=== PATIENT | female | born 1980 | race Caucasian/White ===

== ENCOUNTER 2020-09-17 19:47 | Emergency (ER) | payer OTHER ==
[~2020-09-17] VITALS: Ht 167.6 cm; Wt 89.8 kg
[2020-09-17] MEDS ORDERED: ALBUTEROL/IPRATROPIUM 3 ML NEB NEB ONE (20:30)
[2020-09-17] MEDS ORDERED: SODIUM CHLORIDE 0.9% 1000ML 1,000 ML IV SCH (20:30)
[2020-09-17] MEDS ORDERED: DEXAMETHASONE SOD PHOS 10 MG/1 ML VIAL IV ONE (20:30)
[2020-09-17] MEDS ORDERED: DEXAMETHASONE SOD PHOS INJ 4 MG/ML VIAL ONE (20:45)
[2020-09-17] MEDS ORDERED: ACETAMINOPHEN 325 MG TAB PO ONE (20:45)
[2020-09-17] MEDS ORDERED: ALBUTEROL/IPRATROPIUM 3 ML NEB ONE (20:45)
[2020-09-17] MEDS ORDERED: ACETAMINOPHEN 325 MG TAB ONE (20:47)
[2020-09-17] MEDS ORDERED: POTASSIUM CHLORIDE 20 MEQ TAB CR PO STA (21:48)
[2020-09-17] MEDS ORDERED: POTASSIUM CHLORIDE 20 MEQ TAB CR PO ONE (22:58)
[2020-09-18] MEDS ORDERED: AZITHROMYCIN250 MG PO (00:12)
[2020-09-18] MEDS ORDERED: PREDNISONE20 MG PO (00:12)
[2020-09-18] MEDS ORDERED: PROVENTIL HFA6.7 GM INH (00:13)
[2020-09-18] MEDS ORDERED: AZITHROMYCIN 250 MG TAB PO ONE (00:15)
[2020-09-18] MEDS ORDERED: LEVOFLOXACIN500 MG PO (00:16)
== END 2020-09-18 00:30 | disposition home or self-care (01) ==
LOC: FSED 20:25
DX: R50.9 Fever, unspecified (principal); J20.9 Acute bronchitis, unspecified; B34.9 Viral infection, unspecified; R05 Cough; N39.0 Urinary tract infection, site not specified; E87.6 Hypokalemia; D64.9 Anemia, unspecified; K21.9 Gastro-esophageal reflux disease without esophagitis; M54.5 Low back pain; G89.29 Other chronic pain; Z20.822 Contact with and (suspected) exposure to COVID-19; F17.210 Nicotine dependence, cigarettes, uncomplicated
CPT/HCPCS: 71046; 80053; 81003; 81025; 85025; 87400; 99284; J1100 ×2; J7030; U0002